=== PATIENT | female | born 1985 | race Caucasian/White ===

== ENCOUNTER 2017-08-23 14:58 | Emergency (ER) | payer OTHER ==
[~2017-08-23] VITALS: Ht 175.3 cm; Wt 79.4 kg
[2017-08-24] MEDS ORDERED: ZYPREXA10 MG PO (16:20)
== END 2017-08-24 18:11 | disposition home or self-care (01) ==
LOC: ED 14:58
DX: R45.851 Suicidal ideations (principal); Z00.8 Encounter for other general examination; F15.10 Other stimulant abuse, uncomplicated; F17.200 Nicotine dependence, unspecified, uncomplicated
CPT/HCPCS: 80053; 80176; 81001; 84443; 84703; 85025; 99283; G0480; J7030

== ENCOUNTER 2018-09-19 00:52 | Emergency (ER) | payer OTHER ==
[~2018-09-19] VITALS: Ht 175.3 cm; Wt 108.9 kg
[~2018-09-19 00:52] MED LIST: ZYPREXA10 MG PO
[2018-09-19] MEDS ORDERED: MELATONIN3 MG PO (01:06)
[2018-09-19] MEDS ORDERED: CYCLOBENZAPRINE10 MG PO (01:08)
== END 2018-09-19 01:12 | disposition home or self-care (01) ==
LOC: ED 00:52
DX: M62.830 Muscle spasm of back (principal); F17.200 Nicotine dependence, unspecified, uncomplicated; Z91.030 Bee allergy status; Z79.899 Other long term (current) drug therapy
CPT/HCPCS: 99283

== ENCOUNTER 2018-12-24 16:09 | Emergency (ER) | payer SELFPAY ==
[~2018-12-24] VITALS: Ht 182.9 cm; Wt 108.9 kg
[~2018-12-24 16:09] MED LIST changes: +CYCLOBENZAPRINE10 MG PO; +MELATONIN3 MG PO
[2018-12-24] MEDS ORDERED: EPINEPHRIN0.3 MG/0.3 IM (16:19)
[2018-12-24] MEDS ORDERED: VISTARIL25 MG PO (16:20)
[2018-12-24] MEDS ORDERED: SEROQUEL25 MG PO (16:20)
[2018-12-24] MEDS ORDERED: CYCLOBENZAPRINE10 MG PO (19:08)
== END 2018-12-24 19:35 | disposition home or self-care (01) ==
LOC: ED 16:09
DX: S39.012A Strain of muscle, fascia and tendon of lower back, initial encounter (principal); X50.9XXA Other and unspecified overexertion or strenuous movements or postures, initial encounter; Z87.891 Personal history of nicotine dependence; Z79.899 Other long term (current) drug therapy
CPT/HCPCS: 99283

== ENCOUNTER 2022-06-08 05:13 | Emergency (ER) | payer OTHER ==
[~2022-06-08] VITALS: Ht 182.9 cm; Wt 108.9 kg
[~2022-06-08 05:13] MED LIST changes: +EPINEPHRIN0.3 MG/0.3 IM; +SEROQUEL25 MG PO; +VISTARIL25 MG PO
--- OUTSIDE RECORDS SUMMARY | 2022-06-08 05:16 | XMS ---
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 ED/UCC VISIT TRACKING (12 MO.) [facility] COMPLAINT: - [facility]IDAL [facility] DIAGNOSES: - Fever - Encounter for general adult medical examination without abnormal findings 06/03/2022 18[facility]44 [facility] DIAGNOSES: - Noninfective gastroenteritis and colitis, unspecified - Mental Health Evaluation - Other stimulant use, unspecified with stimulant-induced psychotic disorder, unspecified 06/02/2022 18:21 [facility] TYPE: Emergency DIAGNOSES: - Nonpsychotic mental disorder, unspecified - Vomiting, unspecified - Diarrhea, unspecified - Psychotic Symptoms 05/24/2022 06:58 [facility] [place] TYPE: Emergency DIAGNOSES: - Other psychoactive substance abuse, uncomplicated - Acute cystitis without hematuria - cramps diarrhea abd pain - Weakness 05/23/2022 03:08 [facility] [place] TYPE: Emergency DIAGNOSES: - Anxiety disorder, unspecified - substance abuse - Other psychoactive substance abuse, uncomplicated 05/22/2022 19:[address] [facility] TYPE: Emergency DIAGNOSES: - Anxiety disorder, unspecified - Other psychoactive substance abuse, uncomplicated - Syncope INPATIENT VISIT TRACKING (12 MO.) No inpatient visits to display in this time frame [email or web address]
== END 2022-06-08 08:56 | disposition home or self-care (01) ==
LOC: ED 05:13
DX: E86.0 Dehydration (principal); F15.10 Other stimulant abuse, uncomplicated; Z87.891 Personal history of nicotine dependence
CPT/HCPCS: 36415; 80053; 81001; 84703; 85025; 96361; 96374; 99284-25; G0480; J2405; J7121

== ENCOUNTER 2022-06-08 14:35 | Emergency (ER) | payer OTHER ==
[~2022-06-08] VITALS: Ht 182.9 cm; Wt 127.0 kg
--- OUTSIDE RECORDS SUMMARY | 2022-06-08 14:43 | XMS ---
PreManage Notification: TAO MARQUEZ Security Night Shift Events No recent Security Events currently on file CRITERIA MET - [facility] - 2 Visits in 30 Days - 6 ED Visits in 6 Months CARE PROVIDERS BARB ACEVEDO Nurse Practitioner Current PHONE: Unknown Care Guidelines exist for the following facilities: [facility] ( 02/17/2015 ) [facility] ( 02/17/2015 ) Sandra VISIT COUNT (12 MO.) [address] TOTAL 8 NOTE: Visits indicate total known visits. ED/UCC VISIT TRACKING (12 MO.) 06/08/2022 14:36 [facility] [place] TYPE: Emergency COMPLAINT: - PSYCHOLOGICAL EVALUATION 06/08/2022 05:14 [facility] [place] TYPE: Emergency COMPLAINT: - SUICIDAL 06/04/2022 07:[address] [facility] [facility] TYPE: Emergency DIAGNOSES: - Encounter for general adult medical examination without abnormal findings - Fever 06/03/2022 18:44 [facility] H[place] TYPE: Emergency DIAGNOSES: - Other stimulant use, unspecified with stimulant-induced psychotic disorder, unspecified - Noninfective gastroenteritis and colitis, unspecified - Mental Health Evaluation 06/02/2022 18:21 [facility] TYPE: Emergency DIAGNOSES: - Psychotic Symptoms - Nonpsychotic mental disorder, unspecified - Vomiting, unspecified - Diarrhea, unspecified 05/24/2022 06:58 [facility] TYPE: Emergency DIAGNOSES: - Weakness - Other psychoactive substance abuse, uncomplicated - Acute cystitis without hematuria - cramps diarrhea abd pain 05/23/2022 03:08 [facility] TYPE: Emergency DIAGNOSES: - Other psychoactive substance abuse, uncomplicated - Anxiety disorder, unspecified - substance abuse 05/22/2022 19:41 [facility] TYPE: Emergency DIAGNOSES: - Syncope - Anxiety disorder, unspecified - Other psychoactive substance abuse, uncomplicated INPATIENT VISIT TRACKING (12 MO.) No inpatient visits to display in this time frame [email or web address]
== END 2022-06-08 16:27 | disposition left against medical advice (07) ==
LOC: ED 14:35
DX: F20.1 Disorganized schizophrenia (principal); F15.10 Other stimulant abuse, uncomplicated; Z87.891 Personal history of nicotine dependence
CPT/HCPCS: 36415; 80053; 81001; 84443; 84703; 85025; 87502; 99284; G0480; U0003

== ENCOUNTER 2022-06-08 19:53 | Emergency (ER) | payer OTHER ==
[~2022-06-08] VITALS: Ht 182.9 cm; Wt 166.0 kg
--- OUTSIDE RECORDS SUMMARY | 2022-06-08 20:00 | XMS ---
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 ED/UCC VISIT TRACKING (12 MO.) 06/08/2022 19:53 [facility] [place] TYPE: Emergency COMPLAINT: - MULTIPLE COMPLAINTS 06/08/2022 14:36 [facility] [place] TYPE: Emergency COMPLAINT: - PSYCHOLOGICAL EVALUATION 06/08/2022 05:14 [facility] [place] TYPE: Emergency COMPLAINT: - SUICIDAL [facility] DIAGNOSES: - Encounter for general adult medical examination without abnormal findings - Fever 06/03/2022 18[facility] DIAGNOSES: - Other stimulant use, unspecified with stimulant-induced psychotic disorder, unspecified - Noninfective gastroenteritis and colitis, unspecified - Mental Health Evaluation 06/02/2022 18:21 [facility] DIAGNOSES: - Psychotic Symptoms - Nonpsychotic mental disorder, unspecified - Vomiting, unspecified - Diarrhea, unspecified 05/24/2022 06:58 [facility] [place] [facility] DIAGNOSES: - Weakness - Other psychoactive substance abuse, uncomplicated - Acute cystitis without hematuria - cramps diarrhea abd pain 05/23/2022 03:08 [facility] [place] TYPE: Emergency DIAGNOSES: - Other psychoactive substance abuse, uncomplicated - Anxiety disorder, unspecified - substance abuse 05/22/2022 19:41 [facility] [place] [facility]: Emergency DIAGNOSES: - Syncope - Anxiety disorder, unspecified - Other psychoactive substance abuse, uncomplicated INPATIENT VISIT TRACKING (12 MO.) No inpatient visits to display in this time frame [id number]
== END 2022-06-08 23:02 | disposition home or self-care (01) ==
LOC: ED 19:53
DX: F15.20 Other stimulant dependence, uncomplicated (principal); Z87.891 Personal history of nicotine dependence
CPT/HCPCS: 99283; A9270

== ENCOUNTER 2022-06-09 04:41 | Emergency (ER) | payer OTHER ==
[~2022-06-09] VITALS: Ht 182.9 cm; Wt 117.0 kg
--- OUTSIDE RECORDS SUMMARY | 2022-06-09 04:48 | XMS ---
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 ED/UCC VISIT TRACKING (12 MO.) 06/09/2022 04:41 [facility] [place] TYPE: Emergency COMPLAINT: - HEADACHE, NAUSEA 06/08/2022 19:53 [facility] [place] TYPE: Emergency COMPLAINT: - MULTIPLE COMPLAINTS 06/08/2022 14:36 [facility] [place] TYPE: Emergency COMPLAINT: - PSYCHOLOGICAL EVALUATION 06/08/2022 05:14 [facility] [place] TYPE: Emergency COMPLAINT: - SUICIDAL [facility] DIAGNOSES: - Encounter for general adult medical examination without abnormal findings - Fever 06/03/2022 [facility] DIAGNOSES: - Mental Health Evaluation - Other stimulant use, unspecified with stimulant-induced psychotic disorder, unspecified - Noninfective gastroenteritis and colitis, unspecified 06/02/2022 18:21 [facility] HINSON TYPE: Emergency DIAGNOSES: - Diarrhea, unspecified - Psychotic Symptoms - Nonpsychotic mental disorder, unspecified - Vomiting, unspecified 05/24/2022 06:58 [facility] [place] TYPE: Emergency DIAGNOSES: - cramps diarrhea abd pain - Weakness - Other psychoactive substance abuse, uncomplicated - Acute cystitis without hematuria 05/23/2022 03:08 [facility] H[place] TYPE: Emergency DIAGNOSES: - substance abuse - Other psychoactive substance abuse, uncomplicated - Anxiety disorder, unspecified 05/22/2022 19:41 [facility] [place] TYPE: Emergency DIAGNOSES: - Other psychoactive substance abuse, uncomplicated - Syncope - Anxiety disorder, unspecified INPATIENT VISIT TRACKING (12 MO.) No inpatient visits to display in this time frame [email or web address]
== END 2022-06-09 05:30 | disposition left against medical advice (07) ==
LOC: ED 04:41
DX: F15.10 Other stimulant abuse, uncomplicated (principal); Z87.891 Personal history of nicotine dependence
CPT/HCPCS: 99284